=== PATIENT | female | born 1980 | race Caucasian/White ===

== ENCOUNTER 2021-05-12 06:30 | Inpatient (IN) | payer MEDICAID ==
[2021-05-12] VITALS (13 sets, daily range): BP systolic 97–142; BP diastolic 45–87
[~2021-05-12] VITALS: Ht 162.6 cm; Wt 89.4 kg
[2021-05-12 06:22] LABS: UCG SCREEN NEGATIVE
[~2021-05-12 06:30] MED LIST changes: -DEXAMETHASONE 4MG/ML 1ML VIAL ONE
[2021-05-12] MEDS: LACTATED RINGERS 1,000 ML IV SCH ×2 (08:20→19:57)
[2021-05-12] MEDS ORDERED: LIDOCAINE HCL/EPINEPHRINE 1%-EPI 1:100,000 20 ML VIAL ONE (08:50)
[2021-05-12] MEDS ORDERED: GENTAMICIN SULF 40MG/ML 2ML VIAL ONE (08:50)
[2021-05-12] MEDS ORDERED: THROMBIN (BOVINE) 5000 UNITS/VIAL TOP ONE (08:51)
[2021-05-12] MEDS ORDERED: PROPOFOL 10MG/ML 100ML 100 ML IV ONE (11:16)
[2021-05-12] MEDS ORDERED: NICARDIPINE 40MG/200ML PREMIX 200 ML IV ONE (11:17)
[2021-05-12] MEDS ORDERED: ACETAMINOPHEN 500MG TABLET ONE (11:27)
[2021-05-12] MEDS ORDERED: PROPOFOL 200MG/20ML VIAL IV ONE (11:40)
[2021-05-12] MEDS ORDERED: MIDAZOLAM HCL 2 MG/2 ML VIAL ONE (11:40)
[2021-05-12] MEDS ORDERED: LIDOCAINE HCL/PF 1% 10 MG/ML 5ML VIAL ONE (11:47)
[2021-05-12] MEDS ORDERED: VANCOMYCIN HCL 1 GM/VIAL ONE (11:51)
[2021-05-12] MEDS ORDERED: LIDOCAINE HCL 2% JELLY 5ML ONE (12:01)
[2021-05-12] MEDS ORDERED: HYDROMORPHONE HCL/PF 2MG/ML (OR) ONE (12:04)
[2021-05-12] MEDS ORDERED: LABETALOL HCL 5MG/ML VIAL 20ML IV ONE (12:10)
[2021-05-12] MEDS ORDERED: METOCLOPRAMIDE HCL 10MG/2ML VIAL ONE (12:11)
[2021-05-12] MEDS ORDERED: ONDANSETRON HCL 4MG/2ML INJ ONE (12:11)
[2021-05-12] MEDS ORDERED: MORPHINE SULFATE 4 MG/ML CPJ (NOT FOR IM USE) IV PRN (13:15)
[2021-05-12] MEDS ORDERED: GLYCOPYRROLATE 0.2 MG/ML 2ML VIAL ONE (13:15)
[2021-05-12] MEDS ORDERED: NICARDIPINE 100 MG in SODIUM CHLORIDE 0.9% 60 ML IV PRN (13:15)
[2021-05-12] MEDS ORDERED: HYDROCODONE/ACETAMINOPHEN 5/325MG TABLET PO PRN (13:15)
[2021-05-12] MEDS ORDERED: NEOSTIGMINE METHYLSULFATE 1MG/ML 10 ML VIAL ONE (13:15)
[2021-05-12] MEDS ORDERED: HYDRALAZINE 20MG/ML VIAL ONE (13:25)
[2021-05-12] MEDS ORDERED: NALOXONE HCL 0.4 MG/ML 1ML VIAL ONE (13:31)
[2021-05-12] MEDS ORDERED: SODIUM CHLORIDE 0.9% 10ML VIAL ONE (13:41)
[2021-05-12] MEDS ORDERED: NALOXONE HCL 0.4MG/ML VIAL IV PRN (15:00)
[2021-05-12] MEDS ORDERED: DEXAMETHASONE 4MG/ML 1ML VIAL IV NR (15:30)
[2021-05-12 20:14] LABS: HEMATOCRIT. 32.2 % (36.0-48.0); HEMOGLOBIN. 10.7 g/dL (12.0-16.0); MEAN CORPUSCULAR HEMOGLOBIN 26.3 pg (28.0-32.0); MEAN PLATELET VOLUME 8.3 fl (7.4-10.4); PLATELET 402 x1000/uL (130-400); RED BLOOD CELL COUNT 4.07 mill/uL (4.2-5.4); RED CELL DISTRIBUTION WIDTH 16.1 % (11.6-14.6)
[2021-05-12 20:16] LABS: CHLORIDE 111 mEq/L (98-107)
[2021-05-12] MEDS: DEXT 5%/LACTATED RINGERS 1,000 ML IV SCH (20:28)
[2021-05-12] MEDS ORDERED: IPRATROPIUM/ALBUTEROL 0.5-3(2.5)MG/3ML NEB HHN PRN (21:15)
[2021-05-12 21:28] LABS: PLATELET ESTIMATE SLIGHTLY INCREASED
[2021-05-12] MEDS: DEXAMETHASONE 4MG/ML 1ML VIAL IV SCH (21:57)
[2021-05-12] MEDS: VANCOMYCIN 1 G PREMIX 200 ML IV SCH (21:58)
[2021-05-12] MEDS: AMITRIPTYLINE 25MG TABLET PO SCH (22:19)
[2021-05-12] MEDS: LEVETIRACETAM 500MG TABLET PO SCH (22:19)
[2021-05-12] MEDS: LAMOTRIGINE 100MG TABLET PO SCH (22:19)
[2021-05-13] VITALS (44 sets, daily range): BP systolic 93–146; BP diastolic 31–87
[2021-05-13] MEDS: DEXAMETHASONE 4MG/ML 1ML VIAL IV SCH ×4 (02:24→20:49)
[2021-05-13] MEDS ORDERED: MORPHINE SULFATE 4 MG/ML CPJ (NOT FOR IM USE) IV PRN (02:30)
[2021-05-13 05:43] LABS: HEMATOCRIT. 31.6 % (36.0-48.0); HEMOGLOBIN. 10.5 g/dL (12.0-16.0); MEAN CORPUSCULAR HEMOGLOBIN 26.3 pg (28.0-32.0); MEAN PLATELET VOLUME 8.8 fl (7.4-10.4); PLATELET 375 x1000/uL (130-400); RED CELL DISTRIBUTION WIDTH 15.8 % (11.6-14.6)
[2021-05-13 05:45] LABS: CHLORIDE 113 mEq/L (98-107)
[2021-05-13] MEDS: DEXT 5%/LACTATED RINGERS 1,000 ML IV SCH ×2 (08:33→15:59)
[2021-05-13] MEDS: VANCOMYCIN 1 G PREMIX 200 ML IV SCH (08:33)
[2021-05-13] MEDS: LEVETIRACETAM 500MG TABLET PO SCH ×2 (08:33→20:49)
[2021-05-13] MEDS: LAMOTRIGINE 100MG TABLET PO SCH ×2 (08:33→20:49)
[2021-05-13] MEDS ORDERED: LORAZEPAM 2MG/ML CPJ IV PRN (10:45)
[2021-05-13] MEDS: BLOOD SUGAR DIAGNOSTIC STRIP TEST SCH ×3 (11:28→20:53)
[2021-05-13] MEDS ORDERED: DEXTROSE 50% WATER 50ML SYRINGE IV PRN (11:30)
[2021-05-13] MEDS: INSULIN LISPRO 100 UNITS/ML SUBCUT SCH ×3 (11:31→21:02)
[2021-05-13] MEDS: AMITRIPTYLINE 25MG TABLET PO SCH (20:49)
[2021-05-13] MEDS ORDERED: DEXAMETHASONE 4MG/ML 1ML VIAL IV SCH (21:00)
[2021-05-13 22:23] LABS: PLATELET ESTIMATE NORMAL
[2021-05-14] VITALS: BP 99/46
[2021-05-14] MEDS: DEXT 5%/LACTATED RINGERS 1,000 ML IV SCH (03:12)
[2021-05-14 04:00] VITALS: BP 102/54
[2021-05-14] MEDS: BLOOD SUGAR DIAGNOSTIC STRIP TEST SCH (07:00)
[2021-05-14] MEDS: INSULIN LISPRO 100 UNITS/ML SUBCUT SCH (07:50)
[2021-05-14 08:00] VITALS: BP 118/99
[2021-05-14] MEDS: LEVETIRACETAM 500MG TABLET PO SCH (09:19)
[2021-05-14] MEDS: LAMOTRIGINE 100MG TABLET PO SCH (09:19)
[2021-05-14 10:19] VITALS: BP 139/73
[2021-05-14 12:00] VITALS: BP 139/73
[2021-05-14 16:00] VITALS: BP 150/89
== END 2021-05-14 17:37 | disposition home or self-care (01) | DRG 321 ==
LOC: OR 06:30 → MICUSO 19:42 → 6EST 05-13 12:23
PROVIDERS: ADMIT Internal Medicine; ATTEND Neurological Surgery
PROC: 0RG1070 Fusion of Cervical Vertebral Joint with Autologous Tissue Substitute, Anterior Approach, Anterior Column, Open Approach (ICD-10-PCS; principal; 2021-05-12)
DX: M48.02 Spinal stenosis, cervical region (principal); G82.50 Quadriplegia, unspecified; M47.12 Other spondylosis with myelopathy, cervical region; R65.10 Systemic inflammatory response syndrome (SIRS) of non-infectious origin without acute organ dysfunction; E83.51 Hypocalcemia; R73.9 Hyperglycemia, unspecified; D64.9 Anemia, unspecified; G93.0 Cerebral cysts; G40.909 Epilepsy, unspecified, not intractable, without status epilepticus; D72.829 Elevated white blood cell count, unspecified; J45.909 Unspecified asthma, uncomplicated; R26.89 Other abnormalities of gait and mobility; R53.81 Other malaise; Z88.0 Allergy status to penicillin; Z88.8 Allergy status to other drugs, medicaments and biological substances; Z79.899 Other long term (current) drug therapy; Z82.49 Family history of ischemic heart disease and other diseases of the circulatory system; M54.12 Radiculopathy, cervical region; G95.20 Unspecified cord compression
CPT/HCPCS: 36415; 72040; 72141; 76000; 80048; 80053; 81025; 82962; 83036; 85025; 86850; 86900; 88304; 88311; 92523; 92610; 95863; 95925; 95926; 95928; 95929; 97110; 97116; 97162; 97166; C1713; J0360; J1100; J1170; J1580; J1815; J2250; J2270; J2310; J2405; J2704; J2710; J2765; J3370; J3490; J7121; L0172; C1762

== ENCOUNTER → 2021-05-12 | Outpatient (CLI) | payer MEDICAID ==
[~2021-05-12] MED LIST: ALBU90AE2 INH; AMIT100T2 PO; DEXAMETHASONE 4MG/ML 1ML VIAL ONE; GABA-533 PO; IBUP-2030 PO; LAMO100T16 PO; LEVE10006 PO; SUMA100T16 PO
== END | disposition home or self-care (01) ==
LOC: OR 05:28
PROVIDERS: ATTEND Neurological Surgery
DX: Z20.822 Contact with and (suspected) exposure to COVID-19 (principal)
CPT/HCPCS: 87426; J1100; Z7610